=== PATIENT | female | born 1950 | race Caucasian/White ===

== ENCOUNTER 2021-03-13 12:42 | Emergency (ER) | payer MEDICARE ==
[2021-03-13 12:58] VITALS: TEMP 98.2
[2021-03-13] MEDS ORDERED: LORazepam 2 MG/ML INJ IM STA (14:02)
--- NOTE | 2021-03-13 14:08 | ED ---
General Adult HPI - General Chief complaint: Extremity Problem,Nontraumatic Stated complaint: arm pain, lump Time Seen by Provider: 03/13/21 13:35 Source: patient Mode of arrival: ambulatory Limitations: no limitations - History of Present Illness Initial comments: Dictation was produced using [employer] dictation software. please excuse any grammatical, word or spelling errors. Chief Complaint: 70-year-old female presents with right shoulder pain History of Present Illness: Is 70-year-old female she presents with right shoulder pain. Patient states she's been having this pain for several days now. She is worried that she notices some lumps to her medial arm. She is worried about a blood clot. Patient states she has pain to her right lateral shoulder whenever she tries to abduct her right upper extremity. Denies any numbness distally in the hand. She has no history of blood clots. She has severe anxiety. She has a friend who is with her so she does not elope. The ROS documented in this emergency department record has been reviewed and confirmed by me. Those systems with pertinent positive or negative responses have been documented in the HPI. All other systems are other negative and/or noncontributory. PHYSICAL EXAM: General Impression: Alert and oriented x3, not in acute distress HEENT: Normocephalic atraumatic, extra-ocular movements intact, pupils equal and reactive to light bilaterally, mucous membranes moist. Cardiovascular: Heart regular rate and rhythm Chest: Able to complete full sentences, no retractions, no tachypnea Right upper extremity: Limited abduction to 40 actively and passively. Pain with internal rotation. Skin: Intact with no visualized rashes Psych: Normal affect and mood ED course: 70-year-old female presents to the emergency Department with right shoulder pain. Suspect shoulder impingement syndrome. Patient has pain with internal rotation. She has limited abduction. Vital signs upon arrival are within acceptable limits. 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 No fracture. Patient placed in left shoulder sling. Patient counseled on shoulder exercises to prevent frozen shoulder. Patient discharged with referral to orthopedic surgery. - Related Data Allergies Allergy/AdvReac Type Severity Reaction Status Date / Time Penicillins Allergy Rash/Hives Verified 03/13/21 12:57 Review of Systems ROS Statement: Those systems with pertinent positive or pertinent negative responses have been documented in the HPI. ROS Other: All systems not noted in ROS Statement are negative. Past Medical History History of Any Multi-Drug Resistant Organisms: None Reported Additional Past Surgical History / Comment(s): cataracts, sinus surgery. Smoking Status: Never smoker Past Alcohol Use History: None Reported Past Drug Use History: None Reported General Exam Limitations: no limitations Course Vital Signs 03/13/21 12:52 Temperature 98.2 F Pulse Rate 103 H Respiratory 19 Rate Blood Pressure 159/86 O2 Sat by Pulse 95 Oximetry Disposition Clinical Impression: Shoulder pain Disposition: HOME SELF-CARE Condition: Fair Instructions (If sedation given, give patient instructions): Tendinitis (ED), Shoulder Pain (ED) Is patient prescribed a controlled substance at d/c from ED?: No Referrals: Kiet Toledo MD [STAFF PHYSICIAN] - 1-2 days
--- NOTE | 2021-03-13 14:33 | XR ---
EXAMINATION TYPE: XR shoulder complete RT DATE OF EXAM: 03/13/2021 COMPARISON: NONE HISTORY: Arm pain TECHNIQUE: 3 views I see no fracture nor dislocation. Glenohumeral joint is intact. There is large calcification at the greater tuberosity of the humerus measuring 1.8 cm. AC joint is intact. IMPRESSION: Calcific tendinitis. No fracture.
[2021-03-13] MEDS ORDERED: LIDOCAINE 5% PATCH TOPICAL STA (14:45)
[2021-03-13 15:17] VITALS: BP 152/73; PULSE 83; RESP 18
== END 2021-03-13 15:17 | disposition home or self-care (01) ==
LOC: EC 12:42
DX: M25.511 Pain in right shoulder (principal); Z88.0 Allergy status to penicillin
CPT/HCPCS: 73030; 96372; 99283; J2060